=== PATIENT | female | born 1985 | race Caucasian/White ===

== ENCOUNTER 2023-08-08 17:05 | Inpatient (IN) | payer OTHER ==
[~2023-08-08] VITALS: Ht 167.6 cm; Wt 94.8 kg
[2023-08-08 18:15] LABS: BASOPHILS # (AUTO) 0.1 K/uL (0.0-0.2); BASOPHILS % (AUTO) 0.9 % (0.0-2.0); EOSINOPHILS # (AUTO) 0.1 K/uL (0.0-0.7); EOSINOPHILS % (AUTO) 0.8 % (0.0-6.0); HEMATOCRIT 34 % (33-45); HEMOGLOBIN 10.9 g/dL (11.5-14.8); LYMPHOCYTES % (AUTO) 15.2 % (20.0-44.0); MEAN CORPUSCULAR HEMOGLOBIN 27 PG (26.0-33.0); MEAN CORPUSCULAR HGB CONC 32 g/dl (31.0-36.0); MEAN CORPUSCULAR VOLUME 84 fL (82-100); MONOCYTES # (AUTO) 0.5 K/uL (0.1-1.30); MONOCYTES % (AUTO) 3.9 % (2.0-12.0); NEUTROPHILS # (AUTO) 10.1 K/uL (1.8-8.9); NEUTROPHILS % (AUTO) 79.2 % (43.0-81.0); PLATELET COUNT (AUTO) 615 K/uL (150-450); RED BLOOD CELL COUNT(AUTO) 4.02 MIL/uL (4.0-5.2); RED CELL DISTRIBUTION WIDTH 17.4 % (11.5-15.0); WHITE BLOOD COUNT (AUTO) 12.8 K/uL (4.3-11.0)
[2023-08-08 18:28] LABS: SERUM AMMONIA 0 umol/L (11-32)
[2023-08-08 18:32] LABS: CALCIUM, SERUM 8.5 mg/dL (8.5-10.1); CARBON DIOXIDE 23 mmol/L (21-32); CHLORIDE 102 mmol/L (98-107); CREATININE 0.8 mg/dL (0.6-1.3); GLUCOSE 110 mg/dL (74-106); POTASSIUM 3.6 mmol/L (3.5-5.1); SODIUM SERUM 139 mmol/L (136-145); UREA NITROGEN, BLOOD 11 mg/dL (7-18)
[2023-08-08] MEDS: IV NS 0.9% 1,000 ML BAG IV ONE ×2 (18:32→19:45)
[2023-08-08 18:33] LABS: INR 1.02 (0.91-1.10); PARTIAL THROMBOPLASTIN TIME 27.4 SEC (24.3-34.3); PROTHROMBIN TIME 10.8 SECS (9.2-11.1)
[2023-08-08 18:36] LABS: ALANINE AMINOTRANSFERASE 16 U/L (12-78); ALBUMIN 2.6 g/dL (3.4-5.0); ALCOHOL, BLOOD 414 mg/dL (0-10); ALKALINE PHOSPHATASE 105 U/L (46-116); ASPARTATE AMINOTRANSFERASE 16 U/L (15-37); BILIRUBIN,DIRECT 0.1 mg/dL (0.0-0.2); BILIRUBIN,TOTAL 0.3 mg/dL (0.2-1.0); LACTIC ACID 3.2 mmol/L (0.4-2.0); SALICYLATE 2.9 mg/dL (2.8-20.0); TOTAL PROTEIN, SERUM 7.8 g/dL (6.4-8.2)
[2023-08-08 18:41] LABS: THYROID STIMULATING HORMONE 1.886 uIU/mL (0.358-3.74)
[2023-08-08 18:57] LABS: APPEARANCE,URINE CLEAR (CLEAR); BILIRUBIN,URINE NEGATIVE (NEGATIVE); BLOOD, URINE 3+ Ery/uL (NEGATIVE); COLOR,URINE YELLOW (YELLOW); KETONES,URINE NEGATIVE (NEGATIVE); LEUKOCYTE ESTERASE ,URINE NEGATIVE (NEGATIVE); NITRITE, URINE NEGATIVE (NEGATIVE); PROTEIN,URINE NEGATIVE (NEGATIVE); UGLUCOSE NEGATIVE (NEGATIVE); UROBILINOGEN,URINE 0.2 EU/dL (0.2)
[2023-08-08 18:58] LABS: PREGNANCY TEST URINE QUAL NEGATIVE (NEGATIVE)
[2023-08-08] MEDS ORDERED: OLANZAPINE 10 MG VIAL IM ONE (19:03)
[2023-08-08] MEDS: OLANZAPINE 10 MG VIAL IM ONE (19:08)
[2023-08-08] MEDS ORDERED: CEFEPIME 1 GM VIAL ONE (19:39)
[2023-08-08] MEDS ORDERED: VANCOMYCIN 1 GM /D5W 250 ML PB IV ONE (19:40)
[2023-08-08 19:41] LABS: ADD URINE CULTURE NO; BACTERIA,URINE None seen /HPF (None Seen); RBC,URINE 51-80 /HPF (0-2); WBC,URINE 0-2 /HPF (0-3)
[2023-08-08] MEDS: CEFEPIME 1 GM in IV D5W 50 ML IV ONE (19:45)
[2023-08-08 19:53] LABS: AMPHETAMINE, URINE NEGATIVE (NEGATIVE); BARBITURATE, URINE NEGATIVE (NEGATIVE); BENZODIAZEPINE, URINE NEGATIVE (NEGATIVE); COCCAINE, URINE NEGATIVE (NEGATIVE); OPIATE, URINE NEGATIVE (NEGATIVE); PHENCYCLIDINE SCREEN,URINE NEGATIVE (NEGATIVE)
[2023-08-08 20:01] LABS: CANNABINOID, URINE POSITIVE (NEGATIVE)
[2023-08-08] MEDS: VANCOMYCIN 1 GM in IV D5W 250 ML IV ONE (20:15)
[2023-08-08] MEDS ORDERED: LORAZEPAM INJ 2 MG/ML VIAL ONE (20:48)
[2023-08-08] MEDS: LORAZEPAM INJ 2 MG/ML VIAL IV ONE (20:53)
[2023-08-08] MEDS ORDERED: ZOLPIDEM TARTRATE 5 MG TABLET PO PRN (23:30)
[2023-08-08] MEDS ORDERED: ONDANSETRON HCL/PF 4 MG/2 ML VIAL IVP PRN (23:30)
[2023-08-08] MEDS ORDERED: Z GUARD REMEDY 4 OZ OINT TP PRN (23:30)
[2023-08-08] MEDS ORDERED: MAGNESIUM HYDROXIDE 30 ML UDC PO PRN (23:30)
[2023-08-08] MEDS ORDERED: MAG HYDROX/AL HYDROX/SIMETH 30 ML UDC PO PRN (23:30)
[2023-08-08] MEDS ORDERED: CEFEPIME 1 GM in IV D5W 50 ML IV ONE (23:45)
[2023-08-09] MEDS ORDERED: LORAZEPAM INJ 2 MG/ML VIAL IM PRN ×2 (00:30)
[2023-08-09] MEDS ORDERED: OLANZAPINE 10 MG VIAL IM ONE (00:30)
[2023-08-09] MEDS: OLANZAPINE 10 MG VIAL IM ONE (01:02)
[2023-08-09] MEDS: CEFEPIME 1 GM in IV D5W 50 ML IV ONE (02:07)
[2023-08-09] MEDS: CEFEPIME 2 GM in IV D5W 100 ML IV SCH (07:00)
[2023-08-09] MEDS: PANTOPRAZOLE 40 MG TABLET.DR PO SCH (07:30)
[2023-08-09 08:00] VITALS: BP 106/81; TEMP 98.6; O2SAT 98
[2023-08-09] MEDS: VANCOMYCIN HCL 1.25 GM in IV D5W 250 ML IV SCH (08:00)
[2023-08-09 09:31] LABS: BASOPHILS # (AUTO) 0.1 K/uL (0.0-0.2); BASOPHILS % (AUTO) 1.1 % (0.0-2.0); EOSINOPHILS # (AUTO) 0.1 K/uL (0.0-0.7); EOSINOPHILS % (AUTO) 1.3 % (0.0-6.0); HEMATOCRIT 32 % (33-45); HEMOGLOBIN 10.4 g/dL (11.5-14.8); LYMPHOCYTES # (AUTO) 1.2 K/uL (0.8-4.8); LYMPHOCYTES % (AUTO) 13.8 % (20.0-44.0); MEAN CORPUSCULAR HEMOGLOBIN 28 PG (26.0-33.0); MEAN CORPUSCULAR HGB CONC 33 g/dl (31.0-36.0); MEAN CORPUSCULAR VOLUME 84 fL (82-100); MONOCYTES # (AUTO) 0.5 K/uL (0.1-1.30); MONOCYTES % (AUTO) 5.7 % (2.0-12.0); NEUTROPHILS % (AUTO) 78.1 % (43.0-81.0); PLATELET COUNT (AUTO) 539 K/uL (150-450); RED BLOOD CELL COUNT(AUTO) 3.78 MIL/uL (4.0-5.2); RED CELL DISTRIBUTION WIDTH 17.9 % (11.5-15.0)
[2023-08-09 09:44] LABS: CALCIUM, SERUM 7.9 mg/dL (8.5-10.1); CREATININE 0.7 mg/dL (0.6-1.3); MAGNESIUM 1.8 mg/dL (1.8-2.4); PHOSPHORUS 3.3 mg/dL (2.5-4.9); POTASSIUM 3.7 mmol/L (3.5-5.1)
[2023-08-09] MEDS ORDERED: CEPH500C2 PO (09:45)
[2023-08-09 10:03] LABS: THYROID STIMULATING HORMONE 2.696 uIU/mL (0.358-3.74)
[2023-08-09] MEDS: FOLIC ACID 1 MG TABLET PO SCH (11:51)
[2023-08-09] MEDS: THIAMINE HCL 100 MG TABLET PO SCH (11:51)
[2023-08-09] MEDS: IV NS 0.9% 1,000 ML IV PRN (12:05)
[2023-08-09 16:00] VITALS: BP 118/78; TEMP 99; O2SAT 100
[2023-08-10 04:00] VITALS: BP 118/67; TEMP 98; O2SAT 98
[2023-08-10 07:50] LABS: CALCIUM, SERUM 8.2 mg/dL (8.5-10.1); CREATININE 0.6 mg/dL (0.6-1.3); POTASSIUM 3.4 mmol/L (3.5-5.1)
[2023-08-10 08:00] VITALS: BP 119/72; TEMP 97.7; O2SAT 98
[2023-08-10] MEDS: POTASSIUM CHLORIDE 20 MEQ TAB.PRT.SR PO ONE (09:41)
[2023-08-10] MEDS ORDERED: PERMETHRIN 5% CRM 60 GM TUBE TP ONE (12:00)
[2023-08-10 16:00] VITALS: BP 119/60; TEMP 97.9; O2SAT 98
[2023-08-10] MEDS: PERMETHRIN 5% CRM 60 GM TUBE TP ONE (17:10)
[2023-08-10 20:00] VITALS: BP 110/83; TEMP 97.9; O2SAT 98
[2023-08-10] MEDS: SULFAMETH/TRIMETH 800/160 MG 1 UDTAB TABLET PO SCH (20:06)
[2023-08-11 04:00] VITALS: BP 122/85; TEMP 98.3; O2SAT 98
[2023-08-11 06:51] LABS: BASOPHILS % (AUTO) 0.4 % (0.0-2.0); EOSINOPHILS # (AUTO) 0.2 K/uL (0.0-0.7); HEMATOCRIT 27 % (33-45); HEMOGLOBIN 9.1 g/dL (11.5-14.8); LYMPHOCYTES # (AUTO) 1.3 K/uL (0.8-4.8); LYMPHOCYTES % (AUTO) 15.6 % (20.0-44.0); MEAN CORPUSCULAR HEMOGLOBIN 28 PG (26.0-33.0); MEAN CORPUSCULAR HGB CONC 33 g/dl (31.0-36.0); MEAN CORPUSCULAR VOLUME 84 fL (82-100); MONOCYTES # (AUTO) 0.6 K/uL (0.1-1.30); NEUTROPHILS # (AUTO) 6.1 K/uL (1.8-8.9); PLATELET COUNT (AUTO) 386 K/uL (150-450); RED BLOOD CELL COUNT(AUTO) 3.25 MIL/uL (4.0-5.2); RED CELL DISTRIBUTION WIDTH 19.5 % (11.5-15.0); WHITE BLOOD COUNT (AUTO) 8.1 K/uL (4.3-11.0)
[2023-08-11 07:11] LABS: CALCIUM, SERUM 8.1 mg/dL (8.5-10.1); CREATININE 0.7 mg/dL (0.6-1.3); MAGNESIUM 1.9 mg/dL (1.8-2.4); PHOSPHORUS 3.9 mg/dL (2.5-4.9); POTASSIUM 3.5 mmol/L (3.5-5.1)
[2023-08-11 08:00] VITALS: BP 122/73; TEMP 98.3; O2SAT 96
[2023-08-11] MEDS ORDERED: SULF1TAB48 PO (10:11)
[2023-08-11 16:00] VITALS: BP 123/66; TEMP 97.7; O2SAT 98
[2023-08-11] MEDS: ACETAMINOPHEN 325 MG TABLET PO PRN (19:16)
[2023-08-11 20:00] VITALS: BP 115/66; TEMP 98.5; O2SAT 100
[2023-08-12 04:00] VITALS: BP_SYST 113; BP_SYST 115; BP_DIAS 58; BP_DIAS 65; TEMP 98.2; TEMP 98.5; O2SAT 100; O2SAT 99
[2023-08-12 07:16] LABS: CALCIUM, SERUM 8.2 mg/dL (8.5-10.1); CREATININE 0.7 mg/dL (0.6-1.3); POTASSIUM 3.8 mmol/L (3.5-5.1)
[2023-08-12 08:00] VITALS: BP 113/64; TEMP 98.2; O2SAT 98
[2023-08-12 16:00] VITALS: BP 128/80; TEMP 98.6; O2SAT 98
[2023-08-13] VITALS: BP 107/62; TEMP 98.2; O2SAT 100
[2023-08-13 04:00] VITALS: BP 105/70; TEMP 97.9; O2SAT 100
[2023-08-13 07:30] LABS: CALCIUM, SERUM 8.7 mg/dL (8.5-10.1); CREATININE 0.8 mg/dL (0.6-1.3); POTASSIUM 4.2 mmol/L (3.5-5.1)
[2023-08-13 08:00] VITALS: BP 102/67; TEMP 98.4; O2SAT 95
== END 2023-08-13 12:40 | disposition home or self-care (01) | DRG 720 ==
LOC: ER 17:07 → TELE1 21:31 → EDBD 21:31 → TELE1 23:40 → MEDSG1 08-09 12:02
PROVIDERS: ADMIT Student in an Organized Health Care Education/Training Program; ATTEND Nurse Practitioner Acute Care
DX: A41.2 Sepsis due to unspecified staphylococcus (principal); G92.8 Other toxic encephalopathy; E87.20 Acidosis, unspecified; E44.0 Moderate protein-calorie malnutrition; B85.0 Pediculosis due to Pediculus humanus capitis; D64.9 Anemia, unspecified; D75.839 Thrombocytosis, unspecified; F10.229 Alcohol dependence with intoxication, unspecified; Y90.8 Blood alcohol level of 240 mg/100 ml or more; F12.10 Cannabis abuse, uncomplicated; F39 Unspecified mood [affective] disorder; L73.2 Hidradenitis suppurativa; Z59.00 Homelessness unspecified; Z79.4 Long term (current) use of insulin; L03.115 Cellulitis of right lower limb; L03.116 Cellulitis of left lower limb
CPT/HCPCS: 36415; 70450-TC; 71045-TC; 80048-TC; 80061-TC; 80076-TC; 80202-TC; 81001; 82140-TC; 82962-TC; 83605-TC; 83735-TC; 84100-TC; 84443-TC; 84484-TC; 84703-TC; 85025-TC; 85730-TC; 87040-TC; A4223; G0378; G0480; J0692; J2060; J3370; J3490; J7030; J7060